=== PATIENT | male | born 1970 | race Hispanic/Latino ===

== ENCOUNTER 2020-02-21 11:03 | Inpatient (IN) | payer BC, SELFPAY ==
[2020-02-21] VITALS (13 sets, daily range): BP systolic 131–162; BP diastolic 81–93; PULSE 78–132; RESP 16–33; TEMP 36.8–38.4; O2SAT 90–98; BMI 39.4
--- NOTE | ~2020-02-21 | XR_ITS ---
EXAMINATION: XR chest 1V portable EXAM DATE: 02/21/2020 11:24 INDICATION: SOB, COVID+ TECHNIQUE: Portable AP frontal chest x-ray was obtained. There is no prior study for comparison. FINDINGS: There is rather extensive bilateral acute airspace disease, appearance consistent with acut e lung injury from SARS-CoV-2. Other etiologies not excludable. The cardiomediastinal silhouette is prominent but magnified on this AP technique. There is no pneumot horax suspected. There are no pleural effusions. There are no osseous abnormalities identified. IMPRESSION: Rather extensive acute bilateral airspace disease, clinical correlation. Reviewed, dictated and finalized at location G. TY HOME DEMONSTRATION AGENT IMPRESSION: Rather extensive acute bilateral airspace disease, clinical correla tion.
--- NOTE | ~2020-02-21 | XR_ITS ---
EXAMINATION: XR chest 1V portable DATE: 02/25/2020 08:39 INDICATION: Shortness of breath. COVID-19 pneumonia. TECHNIQUE: A single frontal view of the chest was obtained. COMPARISON: Chest single view 02/21/2020 FINDINGS: There are patchy airspace opacities throughout the lungs bilaterally. No pleural effusion o r pneumothorax. The heart size is normal. IMPRESSION: 1. Stable diffuse lung disease, consistent with pneumonia. Reviewed, dictated and finalized at location B. NTORY SPECIALIST
--- NOTE | 2020-02-21 11:09 | ECG_ITS ---
Measurements Intervals [place] Rate: 98 P: 31 DE: 140 QRS: -7 QRSD: 110 T: 21 QT: 329 QTc: 421 Interpretive Statements SINUS RHYTHM INCOMPLETE RIGHT BUNDLE BRANCH BLOCK VOLTAGE CRITERIA FOR LVH NONSPECIFIC T-WAVE ABNORMALITY- INFERIOR LEADS BORDERLINE ECG Electronically Signed On 02-21-2020 17:58:33 ROLL SHEETING CUTTER by Eric Ambrosio D.O.
[2020-02-21 11:35] LABS: Basophils Percent Auto 0.1 % (0.2-1.2); Eosinophils Percent Auto 0.1 % (0-4.4); Hematocrit 49.5 % (42.0-52.0); Immature Granulocyte Absolute 0.03 K/mm3 (0.00-0.031); Immature Granulocyte Percent A 0.4 % (0-0.5); Lymphocytes Absolute Auto 1.05 K/mm3 (0.9-3.2); Lymphocytes Percent Auto 13.5 % (18.3-44.2); Mean Corpuscular HGB Conc 34.3 g/dl (32-36); Mean Corpuscular Hemoglobin 29.3 pg (26-34); Mean Corpuscular Volume 85.3 fl (80-100); Mean Platelet Volume 10.3 fl (7.4-10.4); Monocytes Absolute Auto 0.7 K/mm3 (0.1-0.6); Monocytes Percent Auto 8.7 % (2.6-8.5); Neutrophils Percent Auto 77.2 % (45.5-73.1); Platelet Count Result 206 k/mm3 (150-375); Red Cell Distribution Width 12.6 % (11.5-14.5); White Blood Count 7.8 K/mm3 (4.5-10.0)
[2020-02-21 11:45] LABS: Lactic Acid Reflex 1.3 mmol/L (0.7-2.1)
[2020-02-21] MEDS: SODIUM CHLORIDE 0.9% IV 500 ML 999 ML IV CONT (12:15)
[2020-02-21 12:23] LABS: Anion Gap 6 mmol/L (8-16); Blood Urea Nitrogen 13 mg/dL (9-20); Calcium 8.7 mg/dL (8.4-10.2); Carbon Dioxide 35 mmol/L (22-30); Chloride 95 mmol/L (98-107); Estimated CRCL calculation 103 ml/min; Estimated Glomerular Filt Rate > 60; Glucose 105 mg/dL (75-110); Potassium 3.9 mmol/L (3.4-5.0); Sodium 136 mmol/L (137-145)
[2020-02-21 13:09] LABS: Alveolar/Arterial O2 Gradient 50.4 mmHg; Carboxyhemoglobin 1.2 % THb (0-2.0); Fractional Inspired Oxygen 21 %; HCO3 ABG 24.6 mEq/l (22.0-26.0); Methemoglobin ABG 0.2 %THb (0-1.5); Oxygen Saturation ABG 92.8 % (95.0-100.0); Oxyhemoglobin 91.1 % THb (90.0-100.0); PCO2 ABG 33.3 mmHg (35.0-45.0); PO2 ABG 59.5 mmHg (80.0-100.0); PO2 FiO2 Ratio Arterial Blood 2.83 %; Reduced Hemoglobin 7.5 %THb (0-5.0); Total Hemoglobin 16.4 g/dL (12.0-18.0); pH ABG 7.487 (7.350-7.450)
[2020-02-21 13:10] LABS: Device ROOM AIR; Modified Allen's Test Pass; Site Drawn LEFT RADIAL
--- NOTE | 2020-02-21 13:20 | PC.NURSE ---
Pt called out stating he was hot and wanted to be moved to a different room. This RN informed pt that due to + COVID status he has to remain in private room with door shut, we are also unable to give pt a fan. Pt states that this is ridiculous and wanted to leave. Pt called out again stating that his IV fell out. Will inform primary nurse of this,.
--- NOTE | 2020-02-21 13:21 | ED.SOB ---
HPI - SOB/Dyspnea General Chief Complaint: Shortness of Breath/Dyspnea Stated Complaint: cough, covid-19 Time Seen by Provider: 02/21/20 11:30 Source: patient Mode of arrival: ambulatory Limitations: no limitations History of Present Illness HPI Narrative: This is a 49 year old male that presents to the ER for cold symptoms x 1 week. Reports cough, congestion and fever. Reports he tested positive for coronavirus 2 days ago. Denies chest pain, shortness of breath or lower extremity edema. Related Data Allergies Allergy/AdvReac Type Severity Reaction Status Date / Time erythromycin base Allergy Unknown Verified 12/13/14 10:04 Review of Systems Review of Systems: Narrative: CONSTITUTIONAL: Reports fever ENT: Reports rhinorrhea, congestion CARDIOVASCULAR: Denies chest pain, or edema. RESPIRATORY: Reports cough. Denies dyspnea. All systems reviewed & are unremarkable except as noted in HPI and below PMFSH Past Medical History Medical History (Updated 02/21/20 @ 13:59 by Ambreen Wiley PA-C) History of hypertension Family History Family History (Updated 06/15/16 @ 14:40 by DOCTOR UNKNOWN) Sibling Hypertension Mother Family history of cardiovascular disease Other Diabetes mellitus Social History Social History Smoking status: Former smoker Second hand tobacco smoke exposure: No Smoking end date: 04/15/96 Alcohol intake: current Exam Narrative: Exam Narrative: GENERAL: Well-appearing, obese, and in no acute distress. HEAD: Normocephalic, atraumatic. EYES: EOMI. ENT: Nares clear, no rhinorrhea or epistaxis. Mucous membranes moist. Oropharynx without tonsillar hypertrophy exudate or other lesions. Bilateral TMs pearly henry non-bulging NECK: Supple. No adenopathy or masses. CHEST: Clear to auscultation. No respiratory distress. No wheezes rales or rhonchi HEART: Regular rate and rhythm. No murmur heard. Normal peripheral pulses. EXTREMITIES: Normal range of motion. No edema. SKIN: Warm, dry, no rash. NEURO: No focal deficits. Alert and oriented x3. PSYCH: Normal mood and affect Course Consultations Consultation #1: Spoke with hospitalist about patient and work-up who accepts admission Date: 02/21/20 Time: 14:02 Vital Signs Vital signs: Vital Signs Pulse Rate 101 H 02/21/20 11:09 Temperature 101.1 F H 02/21/20 11:10 Pulse Rate 101 H 02/21/20 12:32 Respiratory Rate 18 02/21/20 12:32 Blood Pressure 162/87 H 02/21/20 12:32 Pulse Oximetry 94 02/21/20 13:38 MDM - SOB/Dyspnea MDM Narrative Medical decision making narrative: Patient presents to the emergency department for cold symptoms x1 week. Febrile, tachypneic, and tachycardic upon arrival. Patient's oxygen saturation mostly was in the low 90s and high 80s. Was placed on 2 L nasal cannula with improvement. Also given cautious hydration and antipyretic. CBC is without concerning findings. Metabolic panel without concerning changes. Lactic acid is normal. Chest x-ray shows extensive bilateral airspace disease. Patient tested positive for coronavirus a couple of days ago. EKG is without concerning changes and patient does not have any chest pain. He will be admitted for further treatment of pneumonia due to coronavirus. Given 1st dose of Decadron in the ED. Spoke with hospitalist about patient and work-up who accepts admission Lab Data Attestation: I reviewed the patient's lab results. Result diagrams: 02/21/20 11:16 02/21/20 11:16 Labs: Lab Results 02/21/20 02/21/20 02/21/20 Range/Units 11:16 11:16 11:16 WBC 7.8 (4.5-10.0) K/mm3 RBC 5.80 (4.6-6.20) M/mm3 Hgb 17.0 (14.0-18.0) g/dL Hct 49.5 (42.0-52.0) % MCV 85.3 (80-100) fl MCH 29.3 (26-34) pg MCHC 34.3 (32-36) g/dl RDW 12.6 (11.5-14.5) % Plt Count 206 (150-375) k/mm3 MPV 10.3 (7.4-10.4) fl Immature Gran % (Auto) 0.4 (0-0.5) % Neut % (Auto) 77.2 H (45.5-73.1) %
[2020-02-21] MEDS: DEXAMETHASONE SOD PHOS INJ 4 MG/ML VIAL 6 MG IV PUSH (13:51)
[2020-02-21 14:27] LABS: Alanine Aminotransferase 54 U/L (4-50); Albumin Level 3.8 g/dL (3.5-5.1); Alkaline Phosphatase 53 U/L (38-126); Aspartate Amino Transferase 60 U/L (17-59); Bilirubin,Total 0.6 mg/dL (0.2-1.3); Lactate Dehydrogenase 1226 U/L (313-618)
--- NOTE | 2020-02-21 14:35 | ADMGEN ---
This patient, Vance Ponce, was admitted to [facility] Surg Room 327-01. Patient/family oriented to hospital policies and general routines including ID bracelet, bed and alarms, visiting hours, pain management, procedures, bathroom and other care routines, personal items, smoking policy, room service/diet, and visiting hours. Information on how to activate the Rapid Response Team has been discussed. Patient/Family are encouraged to report perceived risks to care and to ask questions if they do not understand what they are told or what they should do.
--- NOTE | 2020-02-21 16:44 | PM.IMHP ---
H&P: HPI History of Present Illness Date/Time: 02/21/20 16:44 Chief complaint: coronavirus pneumonia,acute respiratory failure wi Narrative: Vance Ponce is a 49 year old male Who has a past medical history of having hypertension. The patient stated approximately 1 week ago 1 of his coworkers that he works closely with was tested positive for COVID-19. He works at [employer] in all the people in his department were sent home for 10 days. On the 7th day that the patient was at home he developed a cough. He had been at a [employer] outside and felt like he was coughing because of the [employer] but then after that day he developed a fever up to 101. His has not tested positive for had any symptoms but his daughter is 20 years old tested positive about 2 days prior to him being positive. The patient has been taking [id number] cough syrup any also called his primary care doctor and got some cough medicine with codeine which he stated did Not help. the patient tested positive for coronavirus 2 days ago. He has just been more short of breath recently. Is reported that the patient became hypoxic and that his oxygen level was in the higher 80s. the patient stated he got very hot and in the emergency room with made him anxious. He is not currently anxious at this time. He was started on Decadron in the emergency room. On ABGs pH 7.487 CO2 33.3. The patient was hypoxic and required O2 at 2 L per nasal cannula. The patient had been satting in the upper 80s and lower 90s prior to the oxygen. Patient is being admitted to inpatient on medical-surgical floor on date of service 02/21/2020 Review of Systems Review of Systems: All systems reviewed & are unremarkable except as noted in HPI and below Constitutional: Constitutional: Reports as per HPI and Reports no additional constitutional complaints Eyes: Eyes: Reports as per HPI and Reports no additional eye complaints ENT: Reports system reviewed and no additional complaints, except as documented and Reports Normal hearing present Cardiovascular: Cardiovascular: Reports no additional cardiovascular complaints Respiratory: Respiratory: Reports no additional respiratory complaints and Reports no additional respiratory complaints Gastrointestinal: Gastrointestinal: Reports as per HPI and Reports no additional gastrointestinal complaints Musculoskeletal: Musculoskeletal: Reports no additional musculoskeletal complaints Integumentary/Breasts: Skin/Breast: Reports system reviewed and no additional complaints, except as docu and Reports as per HPI Neurologic: Reports system reviewed and no additional complaints, except as documented, Reports as per HPI and Reports Normal hearing present Psychiatric: Psychiatric: Reports no additional psychiatric complaints and Reports as per HPI Endocrine: Endocrine: Reports no additional endocrine complaints Hematologic/Lymphatic: Hematologic/Lymphatic: Reports no additional hematologic/lymphatic complaints Allergic/Immunologic: Allergic/Immunologic: Reports no additional allergic/immunologic complaints PMFSH Past Medical History Medical History History of hypertension Surgical History Surgical History (Updated 02/21/20 @ 16:53 by Ashanti Ernst NP) H/O carpal tunnel repair Family History Family History Sibling Hypertension Mother Family history of cardiovascular disease Other Diabetes mellitus Social History Social History (Updated 02/21/20 @ 16:57 by Ashanti Ernst NP) Social History: the patient is to [employer] and she is a durable power admitted attorneys for healthcare. The patient has a 20-year-old daughter. 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 The patient desires to be a full code. The patient is a lifelong nonsmoker. He does not use marijuana or illicit drugs or alcohol. He says that he will occasionally smoke a ci
[2020-02-21] MEDS: REMDESIVIR 200 MG/NS 250 ML 200 MG/250 ML BAG 250 MG IVPB (18:20)
[2020-02-21] MEDS: guaiFENesin/DEXTROMETHORPHAN 10 ML UDC PO (18:20)
[2020-02-21] MEDS: ACETAMINOPHEN 325 MG TABLET 650 MG PO (20:23)
[2020-02-21] MEDS: ALBUTEROL SULFATE (*SP) AEROSOL 1 PUFF 2 PUFF INHALATION (21:14)
[2020-02-22] VITALS (9 sets, daily range): BP systolic 125–141; BP diastolic 63–92; PULSE 78–96; RESP 16–22; TEMP 36.4–37.5; O2SAT 90–97
[2020-02-22] MEDS: guaiFENesin/DEXTROMETHORPHAN 10 ML UDC PO ×3 (01:48→17:41)
[2020-02-22 06:47] LABS: Hematocrit 46.4 % (42.0-52.0); Immature Granulocyte Absolute 0.04 K/mm3 (0.00-0.031); Immature Granulocyte Percent A 0.5 % (0-0.5); Lymphocytes Absolute Auto 1.13 K/mm3 (0.9-3.2); Lymphocytes Percent Auto 13.8 % (18.3-44.2); Mean Corpuscular HGB Conc 34.5 g/dl (32-36); Mean Corpuscular Volume 84.1 fl (80-100); Mean Platelet Volume 10.2 fl (7.4-10.4); Monocytes Absolute Auto 0.9 K/mm3 (0.1-0.6); Monocytes Percent Auto 11.4 % (2.6-8.5); Neutrophils Absolute Auto 6.1 K/mm3 (1.3-6.7); Neutrophils Percent Auto 74.3 % (45.5-73.1); Platelet Count Result 234 k/mm3 (150-375); Red Blood Count 5.52 M/mm3 (4.6-6.20); Red Cell Distribution Width 12.4 % (11.5-14.5); White Blood Count 8.2 K/mm3 (4.5-10.0)
[2020-02-22 07:04] LABS: Alanine Aminotransferase 55 U/L (4-50); Albumin Level 4.1 g/dL (3.5-5.1); Alkaline Phosphatase 60 U/L (38-126); Anion Gap 8 mmol/L (8-16); Aspartate Amino Transferase 69 U/L (17-59); Bilirubin,Total 0.7 mg/dL (0.2-1.3); Blood Urea Nitrogen 13 mg/dL (9-20); Calcium 8.4 mg/dL (8.4-10.2); Carbon Dioxide 33 mmol/L (22-30); Chloride 96 mmol/L (98-107); Estimated CRCL calculation 127 ml/min; Estimated Glomerular Filt Rate > 60; Glucose 101 mg/dL (75-110); Magnesium 1.9 mg/dL (1.6-2.3); Potassium 3.9 mmol/L (3.4-5.0); Sodium 137 mmol/L (137-145)
[2020-02-22] MEDS: ALBUTEROL SULFATE (*SP) AEROSOL 1 PUFF 2 PUFF INHALATION ×4 (08:50→21:37)
[2020-02-22] MEDS: LOSARTAN POTASSIUM 100 MG TABLET PO (09:21)
[2020-02-22] MEDS: ACETAMINOPHEN 325 MG TABLET 650 MG PO ×2 (09:21→17:40)
[2020-02-22] MEDS: DEXAMETHASONE SOD PHOS INJ 4 MG/ML VIAL 6 MG IV PUSH (09:22)
--- NOTE | 2020-02-22 16:55 | PM.IMPN ---
Progress Note: A&P Assessment and Plan (1) Pneumonia due to 2019 novel coronavirus: Code(s): U07.1 - COVID-19; J12.89 - Other viral pneumonia Status: Acute Assessment and Plan: He had a possible exposure at work and his daughter is also positive. He developed a cough 02/13. He tested positive for COVID-19 02/18. His dyspnea worsened which prompted him to proceed to the ED. He was hypoxic on arrival (per ED notes - oxygen saturations were in low 90s and upper 80s) and placed on 2 liters per nasal cannula. Dexamethasone was initiated 02/20 (day 2). Remdesivir was initiated 02/20 (day 2). Continue supportive care with guaifenesin/dextromethorphan, antipyretics, and analgesics as needed. Continue zinc, ascorbic acid, and vitamin D supplements. Continue supplemental oxygen as needed to maintain oxygen saturation >93% and wean as tolerated. Continue to trend acute phase reactants. Monitor LFTs closely given mild LFT elevation in the setting of remdesivir, likely secondary to COVID. (2) Sepsis: Code(s): A41.9 - Sepsis, unspecified organism Status: Acute Assessment and Plan: Supported by fever, tachycardia, and tachypnea. The suspected source is COVID-19 pneumonia. Lactic acid was normal. Blood cultures were obtained and pending. Continue to monitor vitals, urine output, and acid-base status. (3) Acute respiratory failure with hypoxia: Code(s): J96.01 - Acute respiratory failure with hypoxia Status: Acute Assessment and Plan: Secondary to COVID-19 pneumonia. Continue treatment of COVID-19 with plan as above. Continue supplemental oxygen as needed to maintain oxygen saturation >93%. Wean as tolerated. (4) History of hypertension: Code(s): Z86.79 - Personal history of other diseases of the circulatory system Status: Chronic Assessment and Plan: Blood pressures are reasonably controlled. Continue losartan. Continue to monitor. Subjective Date/time seen: 02/22/20 16:55 Mr. Ponce is a very pleasant and generally healthy 49 y.o. male with hypertension who is seen in follow-up for COVID-19 pneumonia. He had a possible exposure at work and his daughter is also positive. He developed a cough 02/13. He tested positive for COVID-19 02/18. He is feeling a little better today. He does not complain of any significant dyspnea today. He has been up ambulating in the room and tolerating this okay. He is still on 2 liters per nasal cannula. He complains of loose stools. He does not have any nausea or vomiting. His appetite is much better today. He is not having any chest pain, pleuritic pain, or chest pressure. He has a bothersome, dry, hacking cough. He is not able to produce any sputum. He reports occasional mild frontal headache. He is not dizzy or lightheaded. Review of Systems Review of Systems: All systems reviewed & are unremarkable except as noted in HPI and below Exam Narrative: Exam Narrative: General: Well-developed, physically fit and well-nourished 49 y.o. male who is sitting in the chair at the bedside watching TV in no acute distress. HEENT: Normocephalic and atraumatic. Sclerae anicteric. Conjunctivae without injection or exudate. EOMI. Oral mucosa moist. Neck: Supple. Cardiac: Regular rate and rhythm. S1 and S2 normal. Lungs: Tolerating 2 liters per nasal cannula without increased work of breathing. Lungs have diffuse rales. Abdomen: Bowel sounds are normoactive. Abdomen is soft, non-distended, and non-tender. Extremities: No lower extremity edema. No calf tenderness. 2+ DP and PT bilaterally. Neurological: Alert. No focal neurological deficits noted to casual conversation. Speech is clear. Skin: Warm and dry. Psychiatric: Judgment and insight intact. Very pleasant mood and appropriate affect. Objective Data Vital Signs Vital Signs: Vital Signs - 24 hr 02/21/20 20:00 02/21/20 21:17 02/21/20 22:14 Temperature 98.3 F Pulse Rat
[2020-02-22] MEDS: REMDESIVIR 100 MG/NS 250 ML 100 MG/250 ML BAG 250 MG IVPB (17:41)
[2020-02-23] VITALS (8 sets, daily range): BP systolic 113–136; BP diastolic 60–73; PULSE 68–89; RESP 18–20; TEMP 36.2–36.8; O2SAT 90–94
[2020-02-23 06:43] LABS: Basophils Percent Auto 0.1 % (0.2-1.2); Hematocrit 44.3 % (42.0-52.0); Hemoglobin 15.3 g/dL (14.0-18.0); Immature Granulocyte Absolute 0.05 K/mm3 (0.00-0.031); Immature Granulocyte Percent A 0.6 % (0-0.5); Lymphocytes Absolute Auto 1.18 K/mm3 (0.9-3.2); Lymphocytes Percent Auto 13.5 % (18.3-44.2); Mean Corpuscular HGB Conc 34.5 g/dl (32-36); Mean Corpuscular Volume 84.1 fl (80-100); Mean Platelet Volume 10.5 fl (7.4-10.4); Monocytes Absolute Auto 1.1 K/mm3 (0.1-0.6); Monocytes Percent Auto 12.1 % (2.6-8.5); Neutrophils Absolute Auto 6.4 K/mm3 (1.3-6.7); Neutrophils Percent Auto 73.7 % (45.5-73.1); Platelet Count Result 245 k/mm3 (150-375); Red Blood Count 5.27 M/mm3 (4.6-6.20); Red Cell Distribution Width 12.3 % (11.5-14.5); White Blood Count 8.7 K/mm3 (4.5-10.0)
[2020-02-23 07:20] LABS: Alanine Aminotransferase 48 U/L (4-50); Albumin Level 3.7 g/dL (3.5-5.1); Alkaline Phosphatase 54 U/L (38-126); Anion Gap 7 mmol/L (8-16); Aspartate Amino Transferase 76 U/L (17-59); Bilirubin,Total 0.7 mg/dL (0.2-1.3); Blood Urea Nitrogen 16 mg/dL (9-20); CRP 4.1 mg/dL (<1.0); Calcium 8.5 mg/dL (8.4-10.2); Carbon Dioxide 33 mmol/L (22-30); Chloride 97 mmol/L (98-107); Creatine Kinase 967 U/L (55-170); Estimated CRCL calculation 127 ml/min; Estimated Glomerular Filt Rate > 60; Glucose 102 mg/dL (75-110); Lactate Dehydrogenase 1392 U/L (313-618); Magnesium 2.1 mg/dL (1.6-2.3); Potassium 4.2 mmol/L (3.4-5.0); Sodium 137 mmol/L (137-145)
[2020-02-23] MEDS: ALBUTEROL SULFATE (*SP) AEROSOL 1 PUFF 2 PUFF INHALATION ×4 (08:18→22:22)
[2020-02-23 09:24] LABS: Atypical Lymphocytes Present; Platelet Estimate Adequate (Adequate)
[2020-02-23] MEDS: ASCORBIC ACID 250 MG TABLET PO (09:49)
[2020-02-23] MEDS: LOSARTAN POTASSIUM 100 MG TABLET PO (09:49)
[2020-02-23] MEDS: ZINC SULFATE 220 MG CAPSULE PO (09:49)
[2020-02-23] MEDS: CHOLECALCIFEROL 1,000 UNITS TABLET 1000 UNITS PO (09:49)
[2020-02-23] MEDS: ACETAMINOPHEN 325 MG TABLET 650 MG PO ×2 (09:49→18:30)
[2020-02-23] MEDS: PANTOPRAZOLE 40 MG TABLET PO (09:49)
[2020-02-23] MEDS: DEXAMETHASONE SOD PHOS INJ 4 MG/ML VIAL 6 MG IV PUSH (09:50)
[2020-02-23] MEDS: guaiFENesin/DEXTROMETHORPHAN 10 ML UDC PO ×2 (09:50→21:25)
[2020-02-23] MEDS: BENZONATATE 100 MG CAPSULE 200 MG PO ×2 (12:08→18:24)
--- NOTE | 2020-02-23 15:37 | PM.IMPN ---
Progress Note: A&P Assessment and Plan (1) Pneumonia due to 2019 novel coronavirus: Code(s): U07.1 - COVID-19; J12.89 - Other viral pneumonia Status: Acute Assessment and Plan: He had a possible exposure at work and his daughter is also positive. He developed a cough 02/13. He tested positive for COVID-19 02/18. His dyspnea worsened which prompted him to proceed to the ED. He was hypoxic on arrival (per ED notes - oxygen saturations were in low 90s and upper 80s) and placed on 2 liters per nasal cannula. Dexamethasone was initiated 02/20 (day 310). Remdesivir was initiated 02/20 (day 3). Pt is now on RA, continue present care. (2) Sepsis: Code(s): A41.9 - Sepsis, unspecified organism Status: Acute Assessment and Plan: Supported by fever, tachycardia, and tachypnea. The suspected source is COVID-19 pneumonia. BC are pending. (3) Acute respiratory failure with hypoxia: Code(s): J96.01 - Acute respiratory failure with hypoxia Status: Acute Assessment and Plan: Secondary to COVID-19 pneumonia. Continue treatment of COVID-19 with plan as above. (4) History of hypertension: Code(s): Z86.79 - Personal history of other diseases of the circulatory system Status: Chronic Assessment and Plan: Blood pressures is 128/68 Continue losartan. Continue to monitor. Subjective Date/time seen: 02/23/20 15:37 49 year old man, here with covid positive pneumonia. He has underlying MEAGHAN, works in [employer]. he is on remdesivir and dexamathasone. On RA now. Review of Systems Review of Systems: All systems reviewed & are unremarkable except as noted in HPI and below Exam Narrative: Exam Narrative: Comfortable off oxygen talking full sentences, not sob no respiratory distress Const: General: cooperative, healthy appearing, comfortable, no acute distress, well developed, alert, awake and Physically active Nutritional Appearance: average body habitus and well nourished Orientation/consciousness: oriented to person, oriented to place, oriented to time and patient oriented x3 Limitations: no limitations Neuro: General: oriented to person, oriented to place, oriented to time and patient oriented x3 Cranial nerves: Yes Equal, round and reactive pupils present and Yes Normal hearing present Cognition (Neuro): normal cognition Speech: normal speech Gait exam (Neuro): Normal gait present Motor exam (neuro): 5/5 motor strength present throughout Sensory Exam: normal sensation Extrem: General: normal to inspection Right upper extremity: normal to inspection Left upper extremity: normal to inspection Right lower extremity: normal to inspection Left lower extremity: normal to inspection Objective Data Vital Signs Vital Signs: Vital Signs - 24 hr 02/22/20 16:38 02/22/20 20:00 02/22/20 21:40 Temperature 36.8 C 37.1 C Pulse Rate 81 78 81 Respiratory Rate 20 22 H 16 Blood Pressure 130/77 129/63 Pulse Oximetry 90 93 94 02/23/20 00:00 02/23/20 04:00 02/23/20 08:00 Temperature 36.4 C 36.8 C 36.3 C L Pulse Rate 75 68 71 Respiratory Rate 20 20 20 Blood Pressure 125/73 114/61 113/60 Pulse Oximetry 93 90 93 02/23/20 08:18 02/23/20 12:00 Temperature 36.2 C L Pulse Rate 89 73 Respiratory Rate 20 Blood Pressure 128/68 Pulse Oximetry 92 94 Intake/Output Intake/Output: Intake & Output 02/20/20 02/21/20 02/22/20 02/23/20 23:59 23:59 23:59 23:59 Intake Total 2070 2380 1290 Output Total 950 1250 600 Balance 1120 1130 690 Meds/Results Medications: Active Medications Generic Name Dose Route Start Last Admin Trade Name Freq PRN Reason Stop Dose Admin Acetaminophen 650 mg 02/21/20 19:38 02/23/20 09:49 Acetaminophen 325 Mg Tablet PO 650 mg Q4H PRN Administration Mild Pain (1-3) or Fever Albuterol 2 puff 02/21/20 20:00 02/23/20 11:46 Albuterol Sulfate (*Sp) Aerosol 1 Puff INHALATION 2 puff QIDRT SWETHA Adm
[2020-02-23] MEDS: REMDESIVIR 100 MG/NS 250 ML 100 MG/250 ML BAG 250 MG IVPB (18:25)
[2020-02-23] MEDS: ENOXAPARIN 40 MG/0.4 ML SYRINGE SUB-Q (21:01)
[2020-02-24] VITALS (9 sets, daily range): BP systolic 112–136; BP diastolic 63–73; PULSE 60–71; RESP 20–22; TEMP 36.4–37; O2SAT 91–98
[2020-02-24 06:52] LABS: Alanine Aminotransferase 52 U/L (4-50)
[2020-02-24 07:30] LABS: Estimated CRCL calculation 127 ml/min; Estimated Glomerular Filt Rate > 60
[2020-02-24] MEDS: ALBUTEROL SULFATE (*SP) AEROSOL 1 PUFF 2 PUFF INHALATION ×4 (08:16→21:50)
[2020-02-24] MEDS: PANTOPRAZOLE 40 MG TABLET PO (08:26)
[2020-02-24] MEDS: CHOLECALCIFEROL 1,000 UNITS TABLET 1000 UNITS PO (08:26)
[2020-02-24] MEDS: LOSARTAN POTASSIUM 100 MG TABLET PO (08:26)
[2020-02-24] MEDS: ZINC SULFATE 220 MG CAPSULE PO (08:26)
[2020-02-24] MEDS: DEXAMETHASONE SOD PHOS INJ 4 MG/ML VIAL 6 MG IV PUSH (08:27)
[2020-02-24] MEDS: ASCORBIC ACID 250 MG TABLET PO (08:27)
[2020-02-24] MEDS: BENZONATATE 100 MG CAPSULE 200 MG PO ×3 (08:27→17:15)
[2020-02-24] MEDS: ENOXAPARIN 40 MG/0.4 ML SYRINGE SUB-Q ×2 (08:27→21:45)
--- NOTE | 2020-02-24 13:14 | PM.IMPN ---
Progress Note: A&P Assessment and Plan (1) Pneumonia due to 2019 novel coronavirus: Code(s): U07.1 - COVID-19; J12.89 - Other viral pneumonia Status: Acute Assessment and Plan: He had a possible exposure at work and his daughter is also positive. He developed a cough 02/13. He tested positive for COVID-19 02/18. His dyspnea worsened which prompted him to proceed to the ED. He was hypoxic on arrival (per ED notes - oxygen saturations were in low 90s and upper 80s) and placed on 2 liters per nasal cannula. Dexamethasone was initiated 02/20 (day 07/23). Remdesivir was initiated 02/20 (day 4/). ON 2 liters, trial without oxygen audrey and CXrtom, hopeful DC audrey (2) Sepsis: Code(s): A41.9 - Sepsis, unspecified organism Status: Resolved Assessment and Plan: Supported by fever, tachycardia, and tachypnea. The suspected source is COVID-19 pneumonia. BC are pending. (3) Acute respiratory failure with hypoxia: Code(s): J96.01 - Acute respiratory failure with hypoxia Status: Acute Assessment and Plan: Secondary to COVID-19 pneumonia. Continue treatment of COVID-19 with plan as above. (4) History of hypertension: Code(s): Z86.79 - Personal history of other diseases of the circulatory system Status: Chronic Assessment and Plan: Blood pressures is 116/64 Continue losartan. Continue to monitor. Subjective Date/time seen: 02/24/20 13:14 Interval history: 49 year old man, here with covid positive pneumonia. He has underlying MEAGHAN, works in [employer]. he is on remdesivir and dexamathasone. Pt is having ongoing wet hacking cough. Pt is on day 4 of remdesivir. Pt is still needing oxygen at the moment. Pt is on Robitussin and Tessalon perles. Tomorrow trial without oxygen, order chest xray for the morning. In anticipation for discharge. Unsure as pt is still needing oxygen today. Review of Systems Review of Systems: All systems reviewed & are unremarkable except as noted in HPI and below Exam Narrative: Exam Narrative: Pt seen in the room no acute distress walking around with oxygen on looks well No retractions Neurological intact No peripheral edema Objective Data Vital Signs Vital Signs: Vital Signs - 24 hr 11/10/20 16:00 02/23/20 20:00 02/23/20 22:53 Temperature 36.3 C L 36.6 C Pulse Rate 71 69 Respiratory Rate 18 18 Blood Pressure 136/69 128/69 Pulse Oximetry 93 92 90 02/24/20 00:00 02/24/20 04:00 02/24/20 08:00 Temperature 37.0 C 36.4 C L Pulse Rate 70 61 Respiratory Rate 22 H 20 Blood Pressure 122/73 120/70 Pulse Oximetry 94 91 91 02/24/20 11:39 Temperature Pulse Rate Respiratory Rate Blood Pressure Pulse Oximetry 92 Intake/Output Intake/Output: Intake & Output 02/21/20 02/22/20 02/23/20 02/24/20 23:59 23:59 23:59 23:59 Intake Total 2070 2380 2630 850 Output Total 950 1250 1200 1200 Balance 1120 1130 1430 -350 Meds/Results Medications: Active Medications Generic Name Dose Route Start Last Admin Trade Name Freq PRN Reason Stop Dose Admin Acetaminophen 650 mg 02/21/20 19:38 02/23/20 18:30 Acetaminophen 325 Mg Tablet PO 650 mg Q4H PRN Administration Mild Pain (1-3) or Fever Albuterol 2 puff 02/21/20 20:00 02/24/20 08:16 Albuterol Sulfate (*Sp) Aerosol 1 Puff INHALATION 2 puff QIDRT SWETHA Administration Ascorbic Acid 250 mg 02/23/20 09:00 02/24/20 08:27 Ascorbic Acid 250 Mg Tablet PO 250 mg DAILY SWETHA Administration Benzonatate 200 mg 02/23/20 13:00 02/24/20 12:52 Benzonatate 100 Mg Capsule PO 200 mg TID SWETHA Administration Dexamethasone Sodium Phosphate 6 mg 02/22/20 09:00 02/24/20 08:27 Dexamethasone Sod Phos Inj 4 Mg/Ml Vial IV PUSH 03/01/20 09:01 6 mg DAILY SWETHA Administration Enoxaparin Sodium 40 mg 02/22/20 21:00 02/24/20 08:27 Enoxaparin 40 Mg/0.4 Ml Syringe SUB-Q 40 mg Q12HR SWETHA Administration Guaifenesin/Dextrometho
[2020-02-24] MEDS: REMDESIVIR 100 MG/NS 250 ML 100 MG/250 ML BAG 250 MG IVPB (17:18)
[2020-02-24] MEDS: guaiFENesin/DEXTROMETHORPHAN 10 ML UDC PO (21:46)
[2020-02-24] MEDS: LORazepam (*CRX) 0.5 MG TABLET PO (21:51)
[2020-02-24] MEDS: ACETAMINOPHEN 325 MG TABLET 650 MG PO (21:51)
[2020-02-25] VITALS (13 sets, daily range): BP systolic 112–135; BP diastolic 68–79; PULSE 56–70; RESP 16–20; TEMP 36.6–37.1; O2SAT 85–98
[2020-02-25 06:29] LABS: Alanine Aminotransferase 55 U/L (4-50)
[2020-02-25] MEDS: ZINC SULFATE 220 MG CAPSULE PO (08:25)
[2020-02-25] MEDS: LOSARTAN POTASSIUM 100 MG TABLET PO (08:25)
[2020-02-25] MEDS: PANTOPRAZOLE 40 MG TABLET PO (08:25)
[2020-02-25] MEDS: BENZONATATE 100 MG CAPSULE 200 MG PO ×2 (08:25→16:15)
[2020-02-25] MEDS: ENOXAPARIN 40 MG/0.4 ML SYRINGE SUB-Q (08:25)
[2020-02-25] MEDS: ASCORBIC ACID 250 MG TABLET PO (08:25)
[2020-02-25] MEDS: CHOLECALCIFEROL 1,000 UNITS TABLET 1000 UNITS PO (08:25)
[2020-02-25] MEDS: DEXAMETHASONE SOD PHOS INJ 4 MG/ML VIAL 6 MG IV PUSH (08:26)
[2020-02-25] MEDS: ALBUTEROL SULFATE (*SP) AEROSOL 1 PUFF 2 PUFF INHALATION ×2 (09:05→12:10)
--- NOTE | 2020-02-25 10:51 | HOMEO2EVAL ---
Home Oxygen Evaluation RC: Home Oxygen (O2) Evaluation Start: 02/25/20 08:00 Freq: ONCE Status: Active Protocol: RPE Activity Type Activity Date Activity User E-Sign Co-Sign Detail Recorded Client Recorded Date Recorded By Document 02/25/20 09:38 JIGNESH [email or web address] 02/25/20 10:50 JIGNESH Document 02/25/20 09:40 JIGNESH [email or web address] 02/25/20 10:50 JIGNESH Document 02/25/20 09:43 JIGNESH [email or web address] 02/25/20 10:50 JIGNESH Document 02/25/20 09:45 JIGNESH [email or web address] 02/25/20 10:50 JIGNESH Document 02/25/20 09:50 JIGNESH [email or web address] 02/25/20 10:50 JIGNESH Document 02/25/20 10:50 JIGNESH [email or web address] 02/25/20 10:50 JIGNESH 02/25/20 02/25/20 02/25/20 09:38 09:40 09:43 Home O2 Evaluation Test Phase Resting Resting Resting Oxygen Delivery Room Air Nasal Cannula Nasal Cannula Oxygen Flow Rate (L/min) 1 2 Pulse Oximetry (90-100 %) 85 L 86 L 87 L Home Oxygen Evaluation Comments Treatment Charges O2 Evaluation 02/25/20 02/25/20 02/25/20 09:45 09:50 10:50 Home O2 Evaluation Test Phase Resting Exercise Resting Oxygen Delivery Nasal Cannula Nasal Cannula Nasal Cannula Oxygen Flow Rate (L/min) 3 3 3 Pulse Oximetry (90-100 %) 90 91 91 Home Oxygen Evaluation Comments PT REQUIRES 3 L AT REST AND WITH EXERTION Treatment Charges
--- NOTE | 2020-02-25 11:03 | PCRCNOTE ---
HOME O2 EVAL COMPLETED. PT REQUIRES 3 L AT REST AND WITH EXERTION. WILL BRING TANK TO ROOM FOR DISCHARGE. WILL SET UP WITH [facility]. PT INSTRUCTED TO CALL [facility] WHEN ARRIVING HOME. ALL PAPERWORK HAS BEEN FAXED.
[2020-02-25 14:08] LABS: Hematocrit 47.3 % (42.0-52.0); Hemoglobin 16.3 g/dL (14.0-18.0); Mean Corpuscular HGB Conc 34.5 g/dl (32-36); Mean Platelet Volume 10.3 fl (7.4-10.4); Platelet Count Result 388 k/mm3 (150-375); Red Blood Count 5.63 M/mm3 (4.6-6.20); Red Cell Distribution Width 12.3 % (11.5-14.5); White Blood Count 13.7 K/mm3 (4.5-10.0)
[2020-02-25 14:28] LABS: Alanine Aminotransferase 65 U/L (4-50); Albumin Level 3.9 g/dL (3.5-5.1); Alkaline Phosphatase 66 U/L (38-126); Anion Gap 8 mmol/L (8-16); Aspartate Amino Transferase 82 U/L (17-59); Bilirubin,Total 0.6 mg/dL (0.2-1.3); Blood Urea Nitrogen 14 mg/dL (9-20); CRP 1.4 mg/dL (<1.0); Calcium 8.8 mg/dL (8.4-10.2); Carbon Dioxide 30 mmol/L (22-30); Chloride 100 mmol/L (98-107); Creatine Kinase 667 U/L (55-170); Estimated CRCL calculation 144 ml/min; Estimated Glomerular Filt Rate > 60; Glucose 104 mg/dL (75-110); Lactate Dehydrogenase 1195 U/L (313-618); Potassium 3.8 mmol/L (3.4-5.0); Sodium 138 mmol/L (137-145)
--- NOTE | 2020-02-25 16:13 | PM.DS ---
DS: Admitting Diagnosis Admitting Diagnosis Admitting Diagnosis: coronavirus pneumonia,acute respiratory failure DS: Discharge Diagnosis Discharge Diagnosis (1) Pneumonia due to 2019 novel coronavirus: Code(s): U07.1 - COVID-19; J12.89 - Other viral pneumonia Status: Acute Assessment and Plan: possible exposure at work and his daughter & is also positive. developed a cough 02/13. tested positive for COVID-19 02/18. dyspnea worsened which prompted him to proceed to the ED. hypoxic on arrival (per ED notes - oxygen saturations were in low 90s and upper 80s) and placed on 2 liters per nasal cannula. Dexamethasone was initiated 02/20 and continued at discharge for full 10 days course. Remdesivir was initiated 02/20 and completed all doses today prior to discharge. Home O2 study showed need for 3 L O2 NC , ordered for home. ON 2-3 liters today. patient wanting to go home today, feels safe and stable. all labs trended showed improvement, LDH, CRP, Ferritin WBC elevated, but likely due to steroids CXR stable today (2) Sepsis: Code(s): A41.9 - Sepsis, unspecified organism Status: Resolved Assessment and Plan: Supported by fever, tachycardia, tachypnea. suspected source is COVID-19 pneumonia. BC are both no growth preliminarily. ordered repeat labs for 02/28 with results sent to his PCP Dr Andres Feldman. (3) Acute respiratory failure with hypoxia: Code(s): J96.01 - Acute respiratory failure with hypoxia Status: Acute Assessment and Plan: STABLE on 3 L O2. Secondary to COVID-19 pneumonia. Continue treatment of COVID-19 with plan as above. (4) History of hypertension: Code(s): Z86.79 - Personal history of other diseases of the circulatory system Status: Chronic Assessment and Plan: Blood pressures is 116/64 Continue losartan. Stable. DS: Summary Time Spent with Patient Time attestation: Total time spent providing and/or coordinating discharge services:90 minutes Exam Narrative: Exam Narrative: Pt seen in the room no acute distress walking around with oxygen on looks well No retractions Neurological intact No peripheral edema Const: General: cooperative, healthy appearing, comfortable, no acute distress, well developed, alert, awake and Physically active Nutritional Appearance: average body habitus and well nourished Orientation/consciousness: oriented to person, oriented to place, oriented to time and patient oriented x3 Limitations: no limitations HENMT: Head: normal to inspection, No palpable skull fracture present, normocephalic and atraumatic Ears: hearing grossly normal bilaterally General nose exam: Normal external nose present and Normal nares present Eyes: General: appearance normal, both eyes and all related structures Alignment and Position: alignment normal Periorbital: periorbital findings normal Eyelids: eyelids normal Conjunctivae: conjunctivae normal Sclera: sclerae normal Cornea: corneas normal Pupils: Equal, round and reactive pupils present and Pupil accommodation reflex normal EOM: EOMs intact bilaterally Neck: Neck: normal visual inspection, full ROM, no lymphadenopathy, trachea midline and supple Thyroid: thyroid normal Carotids: normal carotid upstroke Lymphatic: no lymphadenopathy noted Chest: Chest palpation & inspection: normal inspection of the chest Resp: Effort & Inspection: normal respiratory effort Auscultation: rhonchi Percussion: percussion normal Cardio: Palpation: normal PMI Rate: regular rate Rhythm: regular rhythm Heart sounds: S1 normal heart sound present and S2 normal heart sound present Peripheral pulses: Peripheral pulses 2+ throughout GI: Inspection: normal to inspection Auscultation: normal bowel sounds Rectal Exam: deferred : General: Yes no CVA tenderness Back/Spine/Pelvis: Back: no CVA tenderness Skin: General skin exam: normal color Lesions: no lesions Drew
[2020-02-25] MEDS: guaiFENesin/DEXTROMETHORPHAN 10 ML UDC PO (16:15)
[2020-02-25] MEDS: REMDESIVIR 100 MG/NS 250 ML 100 MG/250 ML BAG 250 MG IVPB (16:15)
== END 2020-02-25 18:00 | disposition home or self-care (01) | DRG 871 ==
LOC: ANHED 11:30 → ANH3MEDSUR 13:57
PROVIDERS: Nurse Practitioner; Physician Assistant; Admitting Provider Family Medicine; Emergency Provider Emergency Medicine; PCP Internal Medicine; Visit Provider Nurse Practitioner
DX: A41.89 Other specified sepsis (principal); U07.1 COVID-19; J12.89 Other viral pneumonia; J96.01 Acute respiratory failure with hypoxia; I10 Essential (primary) hypertension; G47.33 Obstructive sleep apnea (adult) (pediatric); E66.9 Obesity, unspecified; Z68.39 Body mass index [BMI] 39.0-39.9, adult
CPT/HCPCS: 36415; 36600; 71045; 80048; 80053; 80076; 82375; 82550; 82565; 82728; 82805; 83050; 83605; 83615; 83735; 84443; 84460; 85025; 85027; 86140; 87040; 93005; 94618; 94640; 96365; 99285; A9270; J0131; J1100; J1650; J7040

== ENCOUNTER 2020-02-29 11:07 | Outpatient (CLI) | payer BC, SELFPAY ==
[2020-02-29 11:44] LABS: Hematocrit 44.8 % (42.0-52.0); Hemoglobin 15.4 g/dL (14.0-18.0); Mean Corpuscular HGB Conc 34.4 g/dl (32-36); Mean Corpuscular Hemoglobin 28.6 pg (26-34); Mean Corpuscular Volume 83.1 fl (80-100); Mean Platelet Volume 10.4 fl (7.4-10.4); Platelet Count Result 434 k/mm3 (150-375); Red Blood Count 5.39 M/mm3 (4.6-6.20); Red Cell Distribution Width 12.6 % (11.5-14.5); White Blood Count 18.2 K/mm3 (4.5-10.0)
[2020-02-29 11:53] LABS: Alanine Aminotransferase 49 U/L (4-50); Albumin Level 3.6 g/dL (3.5-5.1); Alkaline Phosphatase 75 U/L (38-126); Anion Gap 5 mmol/L (8-16); Aspartate Amino Transferase 30 U/L (17-59); Bilirubin,Total 0.5 mg/dL (0.2-1.3); Blood Urea Nitrogen 14 mg/dL (9-20); CRP 0.7 mg/dL (<1.0); Calcium 8.7 mg/dL (8.4-10.2); Carbon Dioxide 32 mmol/L (22-30); Chloride 100 mmol/L (98-107); Estimated Glomerular Filt Rate > 60; Glucose 117 mg/dL (75-110); Lactate Dehydrogenase 565 U/L (313-618); Potassium 3.7 mmol/L (3.4-5.0); Sodium 137 mmol/L (137-145)
== END 2020-02-29 11:08 | disposition home or self-care (01) ==
PROVIDERS: PCP Internal Medicine; Visit Provider Nurse Practitioner
DX: Z09 Encounter for follow-up examination after completed treatment for conditions other than malignant neoplasm (principal); Z86.19 Personal history of other infectious and parasitic diseases; J96.01 Acute respiratory failure with hypoxia; A41.9 Sepsis, unspecified organism; J12.89 Other viral pneumonia; I10 Essential (primary) hypertension
CPT/HCPCS: 36415; 80053; 83615; 85027; 86140

== ENCOUNTER → 2020-12-06 03:23 | Outpatient (CLI) | payer BC, SELFPAY ==
[2020-12-06 19:41] LABS: SARS-CoV-2 RNA PCR Positive
== END ==
PROVIDERS: PCP Internal Medicine; Visit Provider Internal Medicine Gastroenterology
DX: U07.1 COVID-19 (principal); Z01.812 Encounter for preprocedural laboratory examination
CPT/HCPCS: C9803; U0003; U0005

== ENCOUNTER 2021-01-06 02:13 | Day surgery (SDC) | payer BC, SELFPAY ==
[2020-12-05 15:25] VITALS: BMI 39.5
[2020-12-27 08:38] VITALS: BMI 39.5
[2021-01-06 09:01] VITALS: BP 146/90; PULSE 73; RESP 20; TEMP 36.4; O2SAT 99; BMI 40.7
[2021-01-06] MEDS: LACTATED RINGERS 1,000 ML 150 ML IV CONT (09:28)
--- NOTE | 2021-01-06 09:42 | PM.HPGS ---
History of Present Illness History of Present Illness Consent: Risks, benefits, and alternatives have been discussed and questions answered. Patient agrees to proceed with procedure. Chief complaint: neoplasm screening Narrative: Vance Ponce Sr. is a 50 year old male here for first screening colonoscopy Review of Systems Constitutional: Constitutional: Denies headache(s) and Denies weakness Eyes: Eyes: Denies blurry vision ENT: Reports Normal hearing present, Denies headache(s) and Denies neck pain Cardiovascular: Cardiovascular: Denies chest pain and Denies dyspnea Respiratory: Respiratory: Denies dyspnea Gastrointestinal: Gastrointestinal: Reports no additional gastrointestinal complaints Genitourinary: Genitourinary: Denies dysuria Musculoskeletal: Musculoskeletal: Denies neck pain Integumentary/Breasts: Skin/Breast: Denies dry skin Neurologic: Reports Normal hearing present, Denies headache(s) and Denies weakness Psychiatric: Psychiatric: Denies anxiety Endocrine: Endocrine: Denies change in body appearance Hematologic/Lymphatic: Hematologic/Lymphatic: Denies easy bleeding Allergic/Immunologic: Allergic/Immunologic: Denies urticaria PMFSH Past Medical History Medical History (Updated 01/06/21 @ 09:42 by Zen Brennan MD) Colon cancer screening History of hypertension Surgical History Surgical History (Updated 02/21/20 @ 16:53 by Ashanti Ernst NP) H/O carpal tunnel repair Family History Family History Sibling Hypertension Mother Family history of cardiovascular disease Other Diabetes mellitus Social History Social History (Updated 02/21/20 @ 16:57 by Ashanti Ernst NP) Social History: the patient is to [place] and she is a durable power defense attorney for healthcare. The patient has a 20-year-old daughter. 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 The patient desires to be a full code. The patient is a lifelong nonsmoker. He does not use marijuana or illicit drugs or alcohol. He says that he will occasionally smoke a cigar to celebrate a special occasion but that that. Smoking status: Former smoker Second hand tobacco smoke exposure: No Smoking end date: 04/15/96 Alcohol intake: current Substance use: never Substance use type: does not use Living arrangements: with family Gender identity (if verbalized by the patient): Male Sexual Orientation (if Verbalized by the Patient): Straight or Heterosexual Spiritual care concerns: No Meds Home Medications and Allergies Home Medications Medication Instructions Recorded Confirmed Type ascorbic acid (vitamin C) [Vitamin 250 mg PO DAILY 90 Days #45 tablet 02/25/20 12/05/20 Rx C] losartan 100 mg tablet 100 mg PO DAILY #90 tablet 05/03/20 12/05/20 Rx aspirin [Adult Low Dose Aspirin] 81 mg PO DAILY 12/05/20 12/05/20 History Allergies Allergy/AdvReac Type Severity Reaction Status Date / Time erythromycin base AdvReac Intermediate Nausea Verified 12/05/20 15:27 Vital Signs Vital Signs - 24 hr 01/06/21 09:01 Temperature 97.6 F Pulse Rate 73 Respiratory Rate 20 Blood Pressure 146/90 H Pulse Oximetry 99 Exam Const: General: comfortable and no acute distress HENMT: General nose exam: Normal nares present Eyes: General: appearance normal, both eyes and all related structures Neck: Neck: no JVD Resp: Auscultation: clear to auscultation bilaterally Cardio: Rate: regular rate Rhythm: regular rhythm GI: Inspection: non-distended GI Palp: Yes Soft to palpation Skin: General skin exam: normal color Neuro: General: gait normal Speech: normal speech Extrem: General: normal to inspection Psych: Mental Status: mental status grossly normal Assessment and Plan Assessment and plan (1) Colon cancer screening: Code(s): Z12.11 - Encounter for screening for malignant neoplasm of colon Status:
--- NOTE | 2021-01-06 09:45 | WPDANESEPPF ---
Anes - Initial Pre Proc Eval Procedure: Operation Date: 01/06/21 10:00 Proposed Procedures p Screening Colonoscopy - Zen Brennan MD Date/Time: 01/06/21 09:45 Surgeon: Zen Brennan MD Pre Op Diagnosis: neoplasm screening Patient Data Age: 50 Gender: M Height: 1.78 m Weight: 128.9 kg Last Vital Signs Temp 97.6 F 01/06/21 09:01 Pulse 73 01/06/21 09:01 Resp 20 01/06/21 09:01 BP 146/90 H 01/06/21 09:01 Pulse Ox 99 01/06/21 09:01 Allergies Allergy/AdvReac Type Severity Reaction Status Date / Time erythromycin base AdvReac Intermediate Nausea Verified 12/05/20 15:27 Home Medications Medication Instructions Recorded Confirmed Type ascorbic acid (vitamin C) [Vitamin 250 mg PO DAILY 90 Days #45 tablet 02/25/20 12/05/20 Rx C] losartan 100 mg tablet 100 mg PO DAILY #90 tablet 05/03/20 12/05/20 Rx aspirin [Adult Low Dose Aspirin] 81 mg PO DAILY 12/05/20 12/05/20 History Patient hx anesthesia problems: none Family hx anesthesia problems: none Results Review: All pre-operative results and documents have been reviewed as part of the pre-operative evaluation. 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 The patient has a 20-year-old daughter. 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 The patient is a lifelong nonsmoker. He does not use marijuana or illicit drugs or alcohol. He says that he will occasionally smoke a cigar to celebrate a special occasion but that that. Smoking status: Former smoker Second hand tobacco smoke exposure: No Smoking end date: 04/15/96 Alcohol intake: current Substance use: never Substance use type: does not use Living arrangements: with family Gender identity (if verbalized by the patient): Male Sexual Orientation (if Verbalized by the Patient): Straight or Heterosexual Spiritual care concerns: No Anes - Eval Final PreProcedure Day of Procedure 01/06/21 09:45 Patient weight: morbidly obese Airway: Mallampati scale class II Neurological: alert and oriented Last oral intake: >/= 8 hours ASA classification: III Emergent: no Anesthetic plan: proceed Anesthesia type and monitoring: general GIVS and standard monitoring Results Review: All pre-operative results and documents have been reviewed as part of the pre-operative evaluation. Informed Consent: The patient's anesthetic plan and its attendant risks and benefits were discussed with the patient/family/POA. Questions were solicited and answers provided to the satisfaction of the patient/family/POA.
[2021-01-06 10:12] VITALS: BP 118/73; PULSE 94; RESP 27; O2SAT 92
--- NOTE | 2021-01-06 10:14 | SUR.OPER ---
Transverse Colon Polyp unretrieved. Dr. Nair made aware. No orders at this time. Elie Street RN & Mari Cline RN present in room.
[2021-01-06 10:22] VITALS: BP 127/78; PULSE 75; RESP 19; O2SAT 96
[2021-01-06 10:32] VITALS: BP 129/85; PULSE 70; RESP 21; O2SAT 98
== END 2021-01-06 10:42 | disposition home or self-care (01) ==
PROVIDERS: PCP Internal Medicine; Visit Provider Internal Medicine Gastroenterology
PROC: 0DJD8ZZ Inspection of Lower Intestinal Tract, Via Natural or Artificial Opening Endoscopic (ICD-10-PCS; CPT 45378; principal; 2021-01-06 10:00)
DX: Z12.11 Encounter for screening for malignant neoplasm of colon (principal); K63.5 Polyp of colon; K57.30 Diverticulosis of large intestine without perforation or abscess without bleeding; I10 Essential (primary) hypertension
CPT/HCPCS: 45385; J2704; J7120

== ENCOUNTER 2022-10-12 10:36 | Emergency (ER) | payer BC, SELFPAY ==
[2022-10-12 10:45] VITALS: BP 133/75; PULSE 63; RESP 16; TEMP 36.7; O2SAT 99
--- NOTE | 2022-10-12 10:54 | ED.EXTPRO ---
HPI - Extremity Problem General Chief complaint: Extremity Problem,Nontraumatic Stated complaint: Insect Bite Lt Foot Time Seen by Provider: 10/12/22 10:54 Source: patient, RN notes reviewed and old records reviewed Mode of arrival: ambulatory Limitations: no limitations History of Present Illness HPI Narrative: 51-year-old male who [facility] with insect to his left foot for 5 days which he thinks was a spider which bit him when he was getting ready to mow grass. Patient has area of redness with some swelling to the dorsal distal left foot which is itchy no pustule or weeping from area. Patient reports that he has been taking some Benadryl for the itching. Patient has strong pulses to his left foot, denies any tingling or numbness to his left foot, full mobility of foot is present. MD Complaint: other (insect bite to dorsal left foot with some redness and swelling and itching) Onset (ago): day(s) (5) Related Data Allergies Allergy/AdvReac Type Severity Reaction Status Date / Time erythromycin base AdvReac Intermediate Nausea Verified 10/12/22 10:48 Review of Systems Review of Systems: CONSTITUTIONAL: Denies fever, chills, or sweats. CARDIOVASCULAR: Denies chest pain, palpitations, or edema. RESPIRATORY: Denies cough or dyspnea. GASTROINTESTINAL: Denies abdominal pain, nausea, vomiting SKIN: Reports redness and swelling to left dorsal distal foot. Denies purulent drainage, vesicles, numbness, pain beyond proportion, states is itchy MUSCULOSKELETAL: Denies myalgia. NEUROLOGIC: Denies headache, numbness All systems reviewed & are unremarkable except as noted in HPI and below PMFSH Past Medical History Medical History (Updated 10/13/22 @ 20:09 by Pat Rogers NP) Achilles tendinosis of right lower extremity Body mass index [BMI] 40.0-44.9, adult (03/15/17) Colon cancer screening Conjunctivitis COVID-19 02/01 with pneumonia hospitalized with oxygen 12/06/2020 Dizziness Essential (primary) hypertension (07/08/17) FH: diabetes mellitus History of hypertension Low back pain Numbness of left foot MEAGHAN (obstructive sleep apnea) Other chronic pain Other viral agents as the cause of diseases classified elsewhere Pain of left calf Pain of right thumb Pre-operative clearance Viral URI with cough Surgical History Surgical History (Updated 10/13/22 @ 20:03 by Pat Rogers NP) H/O carpal tunnel repair H/O lumbosacral spine surgery History of right cataract surgery Family History Family History Sibling Hypertension Mother Family history of cardiovascular disease Other Diabetes mellitus Neuropathy Social History Social History (Updated 04/02/22 @ 15:34 by Lila Flores) Social History: the patient is to [place] 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 The patient has a 20-year-old daughter. 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 The patient is a lifelong nonsmoker. He does not use marijuana or illicit drugs or alcohol. He says that he will occasionally smoke a cigar to celebrate a special occasion but that that. Smoking status: Never smoker Second hand tobacco smoke exposure: No Smoking end date: 04/15/96 Alcohol intake: current Substance use: never Substance use type: does not use Lack of Transportation: No Lack of Food: Never True Current Housing: I Have Housing Concerned About Future Housing: No Difficulty Paying Gas/Electric Bills: No Difficulty Paying for Meds: No Currently Unemployed: No Education: High School Diploma/GED Living arrangements: with family Occupation/Education: occupation Gender identity (if verbalized by the patient): Male Sexual Orientation (if Verbalized by the Patient): Straight or Heterosexual Spiritual care concerns: No Comments At time of signature, agree with nursing past medical, surgical, social
== END 2022-10-12 11:16 | disposition home or self-care (01) ==
PROVIDERS: Emergency Provider Registered Nurse; PCP Physician Assistant Medical
DX: S90.862A Insect bite (nonvenomous), left foot, initial encounter (principal); E11.9 Type 2 diabetes mellitus without complications; I10 Essential (primary) hypertension; W57.XXXA Bitten or stung by nonvenomous insect and other nonvenomous arthropods, initial encounter
CPT/HCPCS: 99213; G0463